=== PATIENT | male | born 1965 | race Caucasian/White ===

== ENCOUNTER → 2016-03-13 | Outpatient (CLI) | payer BC ==
--- NOTE | 2016-03-13 12:47 | Diagnostic Imaging Report ---
Indication: COUGH Technique: PA and lateral views of the chest. Findings: Comparison: None The bones and extra pulmonary soft tissues, cardiomediastinal silhouette, pulmonary vasculature and parenchyma, and pleural surfaces are unremarkable. IMPRESSION: Negative PA and lateral chest radiographs
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
== END | disposition home or self-care (01) ==
LOC: RAD 03-10 12:03
DX: M54.2 Cervicalgia (principal); R05 Cough
CPT/HCPCS: 71020; 72052